=== PATIENT | male | born 1955 | race Caucasian/White ===

== ENCOUNTER → 2021-01-30 | Outpatient (CLI) | payer OTHER ==
--- NOTE | 2021-01-30 23:26 | CONS ---
CONSULTATION REASON FOR CONSULTATION: Sleep apnea. HISTORY OF PRESENT ILLNESS: This patient is known to have obstructive sleep apnea. Diagnosis was established based on a home study that was performed on this patient on 04/07/2018 and the patient back then had an AHI of 58.3. For now, the patient is using a dream Station APAP which is set at a pressure of 11.5, minimum, 20 maximum. He is in to my office to establish himself for further care. He is very much benefitting from his CPAP unit. He continues to use his CPAP every night without any interruption. I downloaded the compliance information from his machine and the patient has been averaging around 7.2 hours of CPAP use per night. His mask fit is excellent at 99%. His AHI is down to 2 while on treatment. He is using a Gonzalez FX nasal mask. He was interested in switching his DME to [employer]. He is obese. No recent weight gain or weight loss. Kinder score is down to 2. No snoring while on the CPAP treatment. No nasal congestion. No dry mouth. Denies waking up in the middle of the night for any reasons. No nocturnal dyspnea, chest pain, shortness of breath or heartburn. His treatment has been extremely successful. No dreams. No nightmares. Goes to bed around 10 p.m., wakes up at 6 a.m. in the morning. Averaging around 7-8 hours of sleep. PAST MEDICAL HISTORY: 1. Obstructive sleep apnea. 2. Obesity. 3. Hyperlipidemia. 4. Hypertension. PAST SURGICAL HISTORY: Includes carotid artery endarterectomy on the left, nose surgery and bowel surgery. DRUG ALLERGIES: Not known. OUTPATIENT MEDICATION LIST: Includes Lipitor 20 mg p.o. daily, Trazodone 50 mg p.o. daily, losartan 100 mg p.o. daily, Norvasc 10 mg p.o. daily, metoprolol 25 mg p.o. daily, aspirin 81 mg p.o. daily, and Wellbutrin 300 mg p.o. daily. SOCIAL HISTORY: The patient is a smoker. No history of alcoholism. No history of IV drugs. FAMILY HISTORY: His has obstructive sleep apnea. REVIEW OF SYSTEMS: Fourteen-point review of system was done and the positive findings are mentioned in history of present illness. In general, his treatment has been successful and the patient has no issues with his current CPAP unit which is essentially functional. His Kinder score is down to 2. PHYSICAL EXAMINATION: His BP is 121/63, pulse 63, respirations 16, temperature 97.8, saturation 95% on room air. Kinder score is 2. BMI 36.7. Weight is 270. GENERAL APPEARANCE: Calm, comfortable. HEAD is atraumatic, normocephalic. NECK: Supple. There is no JVD. No goiter or neck masses. Mallampati class 4. LUNGS: Diminished otherwise clear. HEART: Heart sounds are regular rate and rhythm. Normal S1, S2. No S3, S4. No murmurs. ABDOMEN: Soft, nontender. No organomegaly. EXTREMITIES: No edema, no cyanosis or clubbing. NEUROLOGIC: Awake and alert. There is no focal neurological deficit. PSYCHIATRIC: Negative for anxiety or depression. IMPRESSION: 1. Severe obstructive sleep apnea, AHI of 58, currently on APAP with successful treatment. He has a functional machine. Treatment has been successful. His hypersomnia has recovered. 2. Hypersomnia. Kinder score is down to 2. 3. Morbid obesity with a BMI of 36.7, weight of 270. 4. Hypertension. 5. Hyperlipidemia. 6. Carotid artery disease with previous endarterectomy. PLAN: 1. Continue using the Dream Station at the same level of pressure which is APAP, pressure minimum of 11.5, maximum of 20. 2. Refill the Gonzalez FX through [employer] and offer him an AirFit P 10 as an alternative mask. Treatment is successful. Encourage using the CPAP unit at same level of pressure. No pressure adjustments were done. Encourage weight loss. Maintain good sleep hygiene measures. See me back in a year's time in followup. Refills were given. MMODL / IJN: [id number] /
== END ==
LOC: SLEEP 14:53
PROVIDERS: ATTEND Internal Medicine Critical Care Medicine
DX: G47.33 Obstructive sleep apnea (adult) (pediatric) (principal); E66.01 Morbid (severe) obesity due to excess calories; I10 Essential (primary) hypertension; E78.5 Hyperlipidemia, unspecified; Z88.6 Allergy status to analgesic agent; Z68.36 Body mass index [BMI] 36.0-36.9, adult; I25.10 Atherosclerotic heart disease of native coronary artery without angina pectoris; Z99.81 Dependence on supplemental oxygen
CPT/HCPCS: 99211

== ENCOUNTER → 2022-06-04 | Outpatient (CLI) | payer MEDICARE ==
--- NOTE | 2022-06-04 14:52 | P.PN ---
Subjective Progress Note Date: 06/04/22 A 66-year-old male patient is coming to see me for a follow-up regarding his obstructive sleep apnea. This is an interval check. His last evaluation was done in January 2021. The patient remains on a dream station machine which is set at 11 impression of 11.5 cm of water and a maximum pressure of 20 cm of water. He is still using the same machine despite the fact that the machine has been on a recall. He is interested in updating his machine and is looking forward to get a ResMed machine as long as this is covered by the insurance. For the most part, the patient has been very successful with this treatment. His been averaging of 8.6 hours of CPAP use per night. His utilizing the machine more than 4 hours 100% of the time. He is using a mesa fx nasal pillows medium size and the patient's AHI is down to 2.3 while on treatment. He is by the weight is up by about 5 pounds and currently is weighing 275 pounds. No chest pain. No shortness of breath. No cardiac arrhythmias. No major hypersomnia or sleepiness during the day. He is on a combination of other drugs in his medications remain unchanged and his treatment remains successful. Objective - Exam BP is 134/66 with a pulse of 67, respiration of 18 with a temperature at 97F in the weight is 376.. Oxygen saturations 94% on room air oxygen. The patient appeared well nourished and normally developed. Vital signs as documented. Head exam is unremarkable. No scleral icterus or corneal arcus noted. Neck is without jugular venous distension, thyromegaly, or carotid bruits. Carotid upstrokes are brisk bilaterally. Lungs are clear to auscultation and percussion. Cardiac exam reveals the PMI to be normally sized and situated. Rhythm is regular. First and second heart sounds normal. No murmurs, rubs or gallops. Abdominal exam reveals normal bowel sounds, no masses, no organomegaly and no aortic enlargement. Extremities are nonedematous and both femoral and pedal pulses are normal.Examination of the skin revealed no evidence of significant rashes, suspicious appearing nevi or other concerning lesions.Neurologically, the patient is awake and alert and the patient does not have any focal neurological deficit. Cranial nerves are essentially intact. Assessment and Plan Plan: Obstructive sleep apnea maintained on CPAP therapy. Original diagnosis established back in 2017 and the patient has severe OMAR with an AHI of 58.3. Utilizing dream station APAP unit Chronic hypersomnia, improved and the current [place] score is down 4 Obesity with interval 5 pound weight gain in the current weight is 276 Psoriasis Hypertension Hyperlipidemia Plan Continue CPAP therapy the same level of pressure Continue using the current machine for now with understanding that the machine is on a national recall. The patient wants to check if he qualifies for new machine and if so we will proceed by ordering him a ResMed CPAP unit. Keep the same mask interface Encourage weight loss Maintaining his sleep hygiene measures Continue same medication See him back in one year
== END ==
LOC: SLEEP 13:56
PROVIDERS: ATTEND Internal Medicine Critical Care Medicine
DX: G47.33 Obstructive sleep apnea (adult) (pediatric) (principal); E66.9 Obesity, unspecified; I10 Essential (primary) hypertension; E78.5 Hyperlipidemia, unspecified; L40.9 Psoriasis, unspecified; Z99.89 Dependence on other enabling machines and devices

== ENCOUNTER → 2024-05-19 | Outpatient (CLI) | payer MEDICARE ==
--- NOTE | 2024-05-20 18:57 | CTL ---
EXAMINATION TYPE: CT Low Dose Lung DATE OF EXAM: 05/19/2024 4:18 PM CLINICAL INDICATION: Male, 69 years old with history of Z12.2 LUNG CA SCR Z87.891 FORMER SMOKER; Form er smoker. Quit x3yrs. 1PPD x50yrs. , history of tobacco use. COMPARISON: Plain film radiograph 04/30/2024. TECHNIQUE: Multiple axial non-contrast scans were obtained from approximately the lung apices through the upper abdomen. Coronal and sagittal reformatted images were obtained. Low dose technique was uti lized. CT DLP: 179.7 mGycm, Automated exposure control for dose reduction was used. CT Contrast: Contrast used: None Oral contrast used: None FINDINGS: ======== Lack of intravenous contrast and low dose technique limits the evaluation of the vascular and soft ti ssue structures. LUNGS: No evidence of pulmonary fibrosis. No evidence of focal consolidation, pneumothorax or pleural effusion. Centrilobular emphysema changes. Nodules: RUL: None. RML: None. RLL: None. LORENA: None. LLL: None. AIRWAY: Patent and unremarkable. HEART: Size within normal limits.Atherosclerosis of the arterial vasculature. MEDIASTINUM: No gross evidence of adenopathy. VASCULATURE: No aortic aneurysm. MUSCULOSKELETAL: No acute osseous abnormalities SOFT TISSUES/LYMPH NODES: Unremarkable. LOWER NECK: No significant findings. UPPER ABDOMEN: Diffuse low-attenuation to the liver parenchyma. Probable splenic cyst. IMPRESSION: 1. No clinically significant pulmonary nodules. 2. Scattered nodular thickening of the pleura bilaterally. Short-term follow-up recommended to ensure stability in 3-6 months. Correlate for history of asbestos exposure. 3. Moderate emphysema. CT LUNG RAD AND CT CHEST RECOMMENDATION: Lung-Rad 2 Benign Appearance or Behavior: Continue annual sc reening with LDCT in 12 months. S Modifier (other clinically significant findings): None Recommend smoking cessation (if current smoker), or continuation of smoking cessation (if prior smoke r). Annual screening for lung cancer with low-dose computed tomography is recommended in adults ages 55 to 77 years who have a 30 pack-year smoking history and currently smoke or have quit within the pa st 15 years. Screening should be discontinued once a person has not smoked for 15 years or develops a health problem that substantially limits life expectancy or the ability or willingness to have curat krysta lung surgery. Lung rads 2021 [email or web address] [facility], , 05/20/2024 6:55 PM
== END | disposition home or self-care (01) ==
LOC: RADCTMAIN 15:36
PROVIDERS: ATTEND Internal Medicine Critical Care Medicine
DX: Z12.2 Encounter for screening for malignant neoplasm of respiratory organs (principal); J43.2 Centrilobular emphysema; R91.8 Other nonspecific abnormal finding of lung field; Z87.891 Personal history of nicotine dependence
CPT/HCPCS: 71271

== ENCOUNTER 2024-05-21 12:05 | Day surgery (SDC) | payer MEDICARE ==
[~2024-05-21 12:05] MED LIST: LACTATED RINGERS 1,000 ML IV SCH
[2024-05-21] MEDS: IV FLUID CONTINUATION 1,000 ML IV ONE (12:18)
[2024-05-21 12:44] LABS: Glucose,Whole Blood 128 mg/dL (70-110)
[2024-05-21 12:51] VITALS: RESP 16; TEMP 97.8
[2024-05-21] MEDS ORDERED: PROPOFOL 10 MG/ML 20 ML VIAL IV ONE (13:47)
--- NOTE | 2024-05-21 14:04 | P.PCN ---
Date of Procedure: 05/21/24 Procedure(s) Performed: BRIEF HISTORY: Patient is a 69-year-old pleasant white male scheduled for an elective colonoscopy as a part of screening for colon cancer/positive Cologuard. He has history of sigmoid colectomy for fistula 3 years ago. PROCEDURE PERFORMED: Colonoscopy with snare polypectomy. PREOPERATIVE DIAGNOSIS: Screening for colon cancer/positive Cologuard. IV sedation per Anesthesia. PROCEDURE: After informed consent was obtained, the patient, was brought into the endoscopy unit. IV sedation was administered by Anesthesia under continuous monitoring. Digital rectal examination was normal. Initially the Olympus CF-160 flexible video colonoscope was then inserted in the rectum, gradually advanced into the cecum without any difficulty. Careful examination was performed as the scope was gradually being withdrawn. Ileocecal valve and the appendiceal orifice were visualized and appeared normal. Prep was excellent. Mucosa of the cecum, appeared normal. The ascending colon there was a 6 mm sessile polyp removed by cold snare polypectomy. In the transverse colon there was a 3 mm and 4 mm polyp removed by cold snare polypectomy. Rest of the ascending colon, transverse colon, descending colon, and rectum appeared normal. Evidence of sigmoid colon resection with anastomosis located at 22 cm from the anal verge that appeared normal. Retroflexion was performed in the rectum and no lesions were seen. The patient tolerated the procedure well. IMPRESSION: 6 mm ascending colon polyp status post snare polypectomy 3 mm and 4 mm transverse colon polyp status post cold snare polypectomy RECOMMENDATIONS: Findings of this examination were discussed with the patient as well as his family. He was advised to follow-up with the biopsy results. If the biopsy reveals adenoma he can have repeat colonoscopy in 5 years..
[2024-05-21 14:30] VITALS: BP 141/65; PULSE 74
== END 2024-05-21 15:04 | disposition home or self-care (01) ==
LOC: ORWHC2ENDO 12:05
PROVIDERS: ATTEND Internal Medicine Gastroenterology
DX: R19.5 Other fecal abnormalities
CPT/HCPCS: 45385